=== PATIENT | female | born 1995 | race Caucasian/White ===

== ENCOUNTER 2019-10-12 10:38 | Emergency (ER) | payer OTHER, SELFPAY ==
[2019-10-12 10:40] VITALS: BP 122/73; PULSE 71; RESP 18; TEMP 36.4; O2SAT 99; BMI 33.9
--- NOTE | 2019-10-12 10:57 | DI.RAD.S_ITS ---
PROCEDURE: XR FINGER RT MIN 2V INDICATIONS: crushed in car door TECHNIQUE: AP hand, 2 views of the second finger(s) acquired. COMPARISON: None. FINDINGS: Bones: No fractures or dislocations. No suspicious bony lesions. Soft tissues: No suspicious soft tissue calcifications. IMPRESSION: Mild soft tissue swelling but no fracture involving the second digit, site of trauma. No foreign body seen. Dictated by: Santhosh Orr M.D. on 10/12/2019 at 11:28 Approved by: Santhosh Orr M.D. on 10/12/2019 at 11:35
--- NOTE | 2019-10-12 11:36 | ED.WOUNDLAC ---
HPI - Wound/Laceration <LAINA Wiely - Last Filed: 10/12/19 12:29> General Chief Complaint: Wound/Laceration Stated Complaint: smashed right hand pointer finger in door Time Seen by Provider: 10/12/19 11:05 Source: patient Mode of arrival: Ambulatory Limitations: no limitations History of Present Illness HPI narrative: This is a 24-year-old female, nonsmoker, who presents to ED with right distal index finger pain and laceration. Patient reports she accidentally slammed in a car door with affected finger wedge in. Patient right dominant hand. Patient believes her tetanus vaccination is up to date since she had all the immunizations before dental [employer]. Patient reports she is able to move her fingers but very painful. Related Data Home Medications Medication Instructions Recorded Confirmed No Known Home Medications 10/12/19 10/12/19 Allergies Allergy/AdvReac Type Severity Reaction Status Date / Time No Known Drug Allergies Allergy Verified 10/12/19 10:55 Review of Systems <LAINA Wiley - Last Filed: 10/12/19 12:29> Review of Systems Narrative: General: Denies fever, chills, fatigue, malaise, sweats. HEENT: Denies sinus pain, ear pain, sore throat, difficulty swallowing, dizziness. Respiratory: Denies dyspnea, cough, wheezing, hemoptysis, sputum. Cardiovascular: Denies chest pain, palpitations, orthopnea, edema. Gastrointestinal: Denies nausea, vomiting, abdominal pain, diarrhea, constipation, melena. : Denies dysuria, frequency, incontinence, hematuria, urinary retention. Musculoskeletal: See HPI Skin: Denies rash, skin lesions, or other. Neurologic: Denies weakness, headache, numbness, change in speech, confusion, seizures, incoordination. Psychiatric: No concerning psychosocial issues. 12-point review of systems is negative except for those stated above. Patient History <LAINA Wiley - Last Filed: 10/12/19 12:29> Surgical History No pertinent past surgical history (Acute) Social History Smoking Status: Never smoker Smoking Status: Never smoker alcohol intake frequency: holidays/special occasions only Substance Use Type: does not use Exam <Michael PaulaLAINA - Last Filed: 10/12/19 12:29> Narrative Exam Narrative: General appearance: well developed, well nourished, appears to be in discomfort and tears. Head: normocephalic, atraumatic, no scalp lesions, non-tender. ENT: Bilateral auditory canals and tympanic membranes clear. Hearing grossly intact. Nose without bleeding, purulent discharge, septal hematoma or deviation. Turbinate without erythema or swelling. Facial sinuses nontender to palpate. Mucous membrane moist, no mucosal lesion. Throat without erythema, tonsillar hypertrophy or exudate. Uvula in midline, airway patent. Neck/Thyroid: neck supple, full range of motion, no visible masses or meningeal signs. No JVD, non-tender without lymphadenopathy. Skin: 1.5 cm laceration on R hand distal digit on volar aspect. 1cm superficial laceration on same digit on distal aspect. no suspicious rashes, lesions over visible areas. Warm and dry and appropriate color for ethnicity. Heart: no clubbing, no cyanosis, no edema. S1 and S2 normal. RRR w/o murmurs, clicks, or bruits. Lungs: Breathing even and unlabored. No stridor. No accessory muscles used. Able to speak in full sentences. Chest: normal shape and expansion. Abdomen: non-obese, non-distended. Neurologic: alert and oriented. Cognitive exam, [employer] and PNS grossly intact on informal exam. Psych: good eye contact, normal affect. Initial Vital Signs Initial Vital Signs: Vital Signs Temperature 97.6 F 10/12/19 10:40 Pulse Rate 71 10/12/19 10:40 Respiratory Rate 18 10/12/19 10:40 Blood Pressure 122/73 10/12/19 10:40 Pulse Oximetry 99 10/12/19 10:40 Extrem Right upper extremity: hand Details: neuromotor exam normal (able to move affected finger against resistance) Details: fingers 2-5 ABduction normal, vascular exam Details: radial pulse present and normal capillary refill and laceration; swelling <Kiki Holliday DO - Last Filed: 10/12/19 18:25> Initial Vital Signs Initial Vital Signs: Vital Signs Temperature 97.6 F 10/12/19 10:40 Pulse Rate 71 10/12/19 10:40 Respiratory Rate 18 10/12/19 10:40 Blood Pressure 122/73 10/12/19 10:40 Pulse Oximetry 99 10/12/19 10:40 Procedures <LAINA Wiley - Last Filed: 10/12/19 12:29> Laceration Repair Laceration 1: Site: hand (2nd distal digit) Side (If applicable): right Size (cm): 1.5 Description: linear Depth: simple, single layer Local Anesthetic: lidocaine 1% and with bicarb Amount of anesthesia used (mL): 2 Skin layer closed with: nylon Size (cm): 5-0 Number of sutures: 3 Course <LAINA Wiley - Last Filed: 10/12/19 12:29> Orders Ordered: ED Orders 10/12/19 10:57 XR finger RT min 2V Stat Discontinued Medications Bacitracin (Bacitracin) 1 applic TOP NOW ONE Stop: 10/12/19 11:28 Last Admin: 10/12/19 12:06 Dose: 1 applic Documented by: BEN Lidocaine/Sodium Bicarbonate (Buffered Lidocaine 10 Ml Syr) 10 ml INJ NOW ONE Stop: 10/12/19 11:28 Last Admin: 10/12/19 12:07 Dose: 10 ml Documented by: BEN Vital Signs Vital signs: Vital Signs - 8 hr 10/12/19 10:40 10/12/19 12:33 Temperature 97.6 F Pulse Rate 71 67 Respiratory Rate 18 16 Blood Pressure 122/73 Blood Pressure [Left Arm] 115/50 L Pulse Oximetry 99 97 <Kiki Holliday DO - Last Filed: 10/12/19 18:25> Orders Ordered: ED Orders 10/12/19 10:57 XR finger RT min 2V Stat Discontinued Medications Bacitracin (Bacitracin) 1 applic TOP NOW ONE Stop: 10/12/19 11:28 Last Admin: 10/12/19 12:06 Dose: 1 applic Documented by: BEN Lidocaine/Sodium Bicarbonate (Buffered Lidocaine 10 Ml Syr) 10 ml INJ NOW ONE Stop: 10/12/19 11:28 Last Admin: 10/12/19 12:07 Dose: 10 ml Documented by: BEN Vital Signs Vital signs: Vital Signs - 8 hr 10/12/19 10:40 10/12/19 12:33 Temperature 97.6 F Pulse Rate 71 67 Respiratory Rate 18 16 Blood Pressure 122/73 Blood Pressure [Left Arm] 115/50 L Pulse Oximetry 99 97 MDM - Wound/Laceration <Michael Cm-LAINA Reyes - Last Filed: 10/12/19 12:29> Differential Diagnosis Differential diagnosis: Likely laceration and other (Finger fracture, finger contusion) Medical Records Attestation: I reviewed the patient's medical records. Imaging Data XR Finger, RT: Radiologist's impression: Rosemarie Faith 24 F [address] [address] XRay Report Signed Patient: Rosemarie Faith JMR#: [id number] : 1995Acct:[id number] Age/Sex: 24 / FDate of Service: 10/12/19 Loc: ED Accession Number: [id number] Procedure: XR finger RT min 2V Ordering Provider: Kiki Holliday D.O. PROCEDURE: XR FINGER RT MIN 2V INDICATIONS: crushed in car door TECHNIQUE: AP hand, 2 views of the second finger(s) acquired. COMPARISON: None. FINDINGS: Bones: No fractures or dislocations. No suspicious bony lesions. Soft tissues: No suspicious soft tissue calcifications. IMPRESSION: Mild soft tissue swelling but no fracture involving the second digit, site of trauma. No foreign body seen. Dictated by: Santhosh Orr M.D. on 10/12/2019 at 11:28 Approved by: Santhosh Orr M.D. on 10/12/2019 at 11:35 [facility] Narrative Medical decision making narrative: This is a 24-year-old female who presents to ED after her right distal index finger injury by slammed her car door on affected finger this morning. There is no fracture or dislocation per x-ray test. Laceration on volar aspect of distal index finger was repaired by suture. Please see procedural note. Patient tolerated procedure well. Dressing was applied with tubular gauze, bacitracin and non not haven't dressing. Return precautions were discussed with the patient such as signs and symptoms for infection and wound care at home. Suture removal in 7 days. Patient verbalized the understanding and agrees with the treatment plan. Discharge Plan Departure Patient Disposition: Home Clinical Impression: Contusion of finger Qualifiers: Encounter type: initial encounter Finger: index finger Damage to nail status: with damage Laterality: right Qualified Code(s): S60.121A - Contusion of right index finger with damage to nail, initial encounter Laceration of finger of right hand Qualifiers: Encounter type: initial encounter Finger: index finger Damage to nail status: unspecified Foreign body presence: unspecified Qualified Code(s): S61.210A - Laceration without foreign body of right index finger without damage to nail, initial encounter Discharge Date/Time: 10/12/19 12:44 Instructions: DI for Laceration Repair -- Simple, DI for Contusion Activity Restrictions/Additional Instructions: You have been diagnosed with [right index finger contusion and laceration. No acute findings such as fracture or dislocation per x-ray test today on affected finger]. What to do: *Take your me Please do not get your wound soaked in the water until suture removal. Keep your dressing intact for next 24 hrs. After then, you could remove your dressing, wash with soap and water. Pat dry with clean paper towel and dress it with antibiotic ointment. You can change dressing as needed and daily. Please monitor for signs and symptoms for infection such as increasing redness, swelling, warmth, pain, fever, purulent discharge. If this occurs, please return to ED or follow up with your primary care physician since your wound may be gotten infected. Please follow up with your primary care provider in 2-3 days for recheck wound. Your suture should be removed [7-10 ] days. This can be done by your primary provider, walk-in clinic or here in ED. Please keep your wound clean, dry and intact all times. You can use [id number] Tylenol and or Motrin as needed for discomfort. Please use ice pack for next couple of days on the affected finger for swelling and inflammation. Please elevate your finger as much as possible for next couple of days. Prescriptions: No Action No Known Home Medications RF: 0
[2019-10-12] MEDS: BACITRACIN OINT 0.9 GM PCKT 1 APPLIC TOP (12:06)
[2019-10-12] MEDS: LIDO 1%/SOD BICARB 8.4% (10ML) 10 ML SYRINGE INJ (12:07)
[2019-10-12 12:33] VITALS: BP 115/50; PULSE 67; RESP 16; O2SAT 97
== END 2019-10-12 12:44 | disposition home or self-care (01) ==
PROVIDERS: Emergency Provider Nurse Practitioner Family
DX: S61.210A Laceration without foreign body of right index finger without damage to nail, initial encounter (principal); S60.121A Contusion of right index finger with damage to nail, initial encounter; W23.0XXA Caught, crushed, jammed, or pinched between moving objects, initial encounter
CPT/HCPCS: 12001; 73140; 99282; 99283